=== PATIENT | female | born 1965 | race Caucasian/White ===

== ENCOUNTER 2023-12-07 13:39 | Emergency (ER) | payer BC ==
[~2023-12-07] VITALS: Ht 162.6 cm; Wt 74.8 kg
[2023-12-07 13:53] VITALS: BP_SYST 136; PULSE 77; RESP 18; TEMP 98.1; O2SAT 100
[2023-12-07] MEDS ORDERED: HYDR-3917 PO (14:43)
[2023-12-07] MEDS ORDERED: IBUP-1969 PO (14:43)
[2023-12-07 14:59] VITALS: BP_SYST 136; PULSE 77; RESP 18; TEMP 98.1; O2SAT 100
== END 2023-12-07 14:59 | disposition home or self-care (01) ==
LOC: SED 13:39
DX: M75.21 Bicipital tendinitis, right shoulder (principal); Z79.899 Other long term (current) drug therapy
CPT/HCPCS: 99283